=== PATIENT | female | born 1975 | race Two or more races ===

== ENCOUNTER 2016-12-14 21:46 | Emergency (ER) | payer OTHER ==
[~2016-12-14] VITALS: Ht 152.4 cm; Wt 62.6 kg
[~2016-12-14 21:46] MED LIST: DOCU240C31 PO; IBUP-1222 PO; OXYC-302 PO; no meds per pt.
[2016-12-14 21:48] VITALS: BP 168/95
== END 2016-12-14 22:53 | disposition home or self-care (01) ==
LOC: ED 22:47
DX: K08.89 Other specified disorders of teeth and supporting structures (principal); I10 Essential (primary) hypertension
CPT/HCPCS: 99283

== ENCOUNTER 2018-03-05 13:56 | Emergency (ER) | payer OTHER ==
[~2018-03-05] VITALS: Ht 152.4 cm; Wt 61.0 kg
[2018-03-05] MEDS ORDERED: ACETAMINOPHEN 500 MG TABLET PO ONE (15:00)
[2018-03-05] MEDS ORDERED: METHOCARBAMOL 750 MG TABLET PO ONE (15:00)
[2018-03-05 16:25] VITALS: BP 119/64
== END 2018-03-05 16:27 | disposition home or self-care (01) ==
LOC: ED 15:10
DX: S06.0X9A Concussion with loss of consciousness of unspecified duration, initial encounter (principal); S16.1XXA Strain of muscle, fascia and tendon at neck level, initial encounter; V49.9XXA Car occupant (driver) (passenger) injured in unspecified traffic accident, initial encounter; Y93.89 Activity, other specified; Y92.89 Other specified places as the place of occurrence of the external cause; Y99.8 Other external cause status
CPT/HCPCS: 70450; 72050; 72072; 99284

== ENCOUNTER 2018-03-18 02:09 | Emergency (ER) | payer OTHER ==
[~2018-03-18] VITALS: Ht 152.4 cm; Wt 60.0 kg
[2018-03-18 02:10] VITALS: BP 128/87
[2018-03-18] MEDS ORDERED: FAMOTIDINE 20 MG TABLET PO ONE (03:00)
[2018-03-18] MEDS ORDERED: MAALOX/HYOSCYAMINE/LIDOCAINE 45 ML BTL PO ONE (03:00)
[2018-03-18 03:01] LABS: BASOPHILS # (AUTO) 0.06 x10^3/uL (0-0.1); BASOPHILS % (AUTO) 1 % (0-1); EOSINOPHILS % (AUTO) 3 % (1-7); LYMPHOCYTES % (AUTO) 28 % (22-44); MD NO; MEAN CORPUSCULAR HEMOGLOBIN 31.7 pg (27.0-34.8); MEAN CORPUSCULAR HGB CONC 33.9 g/dL (32.4-35.8); MEAN CORPUSCULAR VOLUME 93.6 fL (80-100); MEAN PLATELET VOLUME 8.1 fL (7.4-10.4); MONOCYTES # (AUTO) 0.47 x10^3/uL (0.2-0.8); MONOCYTES % (AUTO) 7 % (2-9); NEUTROPHILS # (AUTO) 3.85 x10^3/uL (1.8-6.8); NEUTROPHILS % (AUTO) 60 % (42-75); PLATELET COUNT 272 x10^3/uL (130-400); RED BLOOD COUNT 4.25 x10^6/uL (3.82-5.3); RED CELL DISTRIBUTION WIDTH 12.8 % (9.6-15.2)
[2018-03-18] MEDS ORDERED: FAMOTIDINE 20 MG TABLET ONE (03:10)
[2018-03-18] MEDS ORDERED: MAALOX/HYOSCYAMINE/LIDOCAINE 45 ML BTL ONE (03:10)
[2018-03-18 03:11] LABS: ALBUMIN 3.5 g/dL (3.4-5.0); ANION GAP 7 mmol/L (5-15); CALCIUM 8.6 mg/dL (8.5-10.1); CHLORIDE 106 mmol/L (98-107)
[2018-03-18 03:14] LABS: ALANINE AMINOTRANSFERASE 54 U/L (12-78); ALKALINE PHOSPHATASE 98 U/L (45-117); BILIRUBIN,TOTAL 0.7 mg/dL (0.2-1.0); CREATININE 0.69 mg/dL (0.55-1.02)
== END 2018-03-18 03:54 | disposition home or self-care (01) ==
LOC: ED 02:45
DX: K29.00 Acute gastritis without bleeding (principal); I10 Essential (primary) hypertension
CPT/HCPCS: 36415; 80053; 83690; 85025; 93005; 99285